=== PATIENT | female | born 1980 | race American Indian/Alaskan Native ===

== ENCOUNTER 2017-04-22 18:59 | Emergency (ER) | payer OTHER ==
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
[2017-04-22] MEDS ORDERED: FLEXERIL PO ONE (23:03)
[2017-04-22] MEDS ORDERED: TORADOL IM ONE (23:03)
[2017-04-22 23:50] VITALS: BP 128/90
== END 2017-04-23 00:09 | disposition home or self-care (01) ==
LOC: ED 18:59
DX: S16.1XXA Strain of muscle, fascia and tendon at neck level, initial encounter (principal); V49.49XA Driver injured in collision with other motor vehicles in traffic accident, initial encounter; Y93.9 Activity, unspecified; Y92.9 Unspecified place or not applicable; Y99.9 Unspecified external cause status
CPT/HCPCS: 96372; 99282; J1885